=== PATIENT | female | born 1990 | race Caucasian/White ===

== ENCOUNTER 2017-10-19 08:40 | Emergency (ER) | payer OTHER ==
[~2017-10-19] VITALS: Ht 162.6 cm; Wt 91.0 kg
[~2017-10-19 08:40] MED LIST: IBUP600 PO; PRENCAP6 PO
[2017-10-19 08:43] VITALS: BP 139/68; PULSE 68; RESP 16; TEMP 99.7; O2SAT 99
[2017-10-19 08:59] LABS: BILIRUBIN, URINE NEG (NEG); BLOOD, URINE NEG (NEG); GLUCOSE,URINE NEG (NEG); KETONE, URINE NEG (NEG); NITRITE,URINE NEG (NEG); URINE COLOR YELLOW (YELLW/STRAW); URINE LEUKOCYTE ESTERASE TRACE (NEG)
[2017-10-19 09:18] LABS: BACTERIA, URINE FEW /hpf
[2017-10-19] MEDS ORDERED: SODIUM CHLOR 0.9% 1000 ML INJ 1,000 ML IV ONE (09:35)
--- NOTE | 2017-10-19 09:42 | PD ---
HPI Chief Complaint: Abdominal Pain Time Seen by Provider: 09:35 Travel History International Travel<30 days: No Contact w/Intl Traveler<30days: No Traveled to known affect area: No History of Present Illness HPI The patient is a 26-year-old female who presents to the emergency department for lower abdominal pain and syncope. The patient states she awakened a day and had generalized abdominal pain, she had a sudden onset of lower abdominal pain and had a syncopal episode. She notes a superficial abrasion to the lower lip. The patient denied any headache, chest pain, shortness of breath, palpitations, or lightheadedness prior to the abdominal pain and syncope. The patient now complains of lower pelvic pain. She has an IUD in place, is sexually active, denies . She denies any previous abdominal surgeries. She denies any dysuria, frequency, urgency, hematuria, vaginal bleeding, or vaginal discharge. Symptoms are moderate. PFSH Past Medical History Medical History: Denies Significant Hx Diminished Hearing: No Tetanus Vaccination: Unknown Influenza Vaccination: No ?: Not LMP: 09/22/17 : 1 Past Surgical History Surgical History: No Previous Surgery Social History Alcohol Use: No Tobacco Use: No Substance Use: No Allergies-Medications (Allergen,Severity, Reaction): Coded Allergies: No Known Allergies (Unverified Adverse Reaction, Unknown, 10/19/17) Reported Meds & Prescriptions Reported Meds & Active Scripts Active No Active Prescriptions or Reported Medications Review of Systems Except as stated in HPI: all other systems reviewed are Neg General / Constitutional: No: Fever Cardiovascular: Positive: Syncope, No: Chest Pain or Discomfort, Palpitations, Irregular Rhythm, Tachycardia, Diaphoresis Respiratory: No: Shortness of Breath Gastrointestinal: Positive: Abdominal Pain, No: Nausea, Vomiting, Diarrhea Genitourinary: Positive: Pelvic Pain, No: Urgency, Frequency, Dysuria, Hematuria, Discharge, Vaginal Bleeding Musculoskeletal: No: Weakness Neurologic: Positive: Syncope, No: Dizziness Physical Exam Narrative GENERAL: Awake, alert, pleasant 26-year-old female who appears her stated age and is in no acute respiratory distress. SKIN: Focused skin assessment warm/dry. HEAD: Atraumatic. Normocephalic. EYES: Pupils equal and round. No scleral icterus. No injection or drainage. ENT: No nasal bleeding or discharge. Superficial abrasion to the lower lip. No active bleeding. NECK: Trachea midline. No JVD. CARDIOVASCULAR: Regular rate and rhythm. No murmur appreciated. RESPIRATORY: No accessory muscle use. Clear to auscultation. Breath sounds equal bilaterally. GASTROINTESTINAL: Abdomen soft, mild suprapubic tenderness. No guarding or rigidity. Back: No CVA tenderness. Pelvic: The exam was performed in the presence of a female nurse. External examination reveals no rashes or lesions. Speculum examination reveals thick white discharge in the vaginal vault. Cervix is closed. I cannot visualize an IUD. MUSCULOSKELETAL: No obvious deformities. No clubbing. No cyanosis. No edema. NEUROLOGICAL: Awake and alert. No obvious cranial nerve deficits. Motor grossly within normal limits. Normal speech. PSYCHIATRIC: Appropriate mood and affect; insight and judgment normal. Data Data Last Documented VS Vital Signs Date Time Temp Pulse Resp B/P (MAP) Pulse Ox O2 Delivery O2 Flow Rate FiO2 10/19/17 11:35 64 14 129/67 (87) 99 Room Air 10/19/17 08:43 99.7 Orders Orders Urinalysis - C+S If Indicated (10/19/17 08:42) Ed Urine Pregnancytest Poc (10/19/17 08:42) Urine Culture (10/19/17 08:50) Complete Blood Count With Diff (10/19/17 09:35) Comprehensive Metabolic Panel (10/19/17 09:35) Gc And Chlamydia Pcr (10/19/17 09:35) Wet Prep Profile (10/19/17 09:35) Iv Access Insert/Monitor (10/19/17 09:35) Ecg Monitoring (10/19/17 09:35) Sodium Chlor 0.9% 1000 Ml Inj (Ns 1000 M (10/19/17 09:35) Ondansetron Inj (Zofran Inj) (10/19/17 09:45) Ketorolac Inj (Toradol Inj) (10/19/17 09:45) Morphine Inj (Morphine Inj) (10/19/17 09:45) Electrocardiogram (10/19/17 ) Tetanus/Diphtheria Tox Adult (Tetanus/Di (10/19/17 09:45) Us Pelvis Comp W Dop Transvag (10/19/17 09:35) Labs Laboratory Tests Test 10/19/17 08:50 10/19/17 09:44 10/19/17 11:25 Urine Collection Type CLEAN CATCH Urine Color YELLOW Urine Turbidity SL CLOUDY Urine pH 6.0 Urine Specific X[place] 1.025 Urine Protein 30 mg/dL Urine Glucose (UA) NEG mg/dL Urine Ketones NEG mg/dL Urine Occult Blood NEG Urine Nitrite NEG Urine Bilirubin NEG Urine Urobilinogen 0.2 MG/DL Urine Leukocyte Esterase TRACE Urine WBC 9-14 /hpf Urine Squamous Epithelial Cells 6-8 /hpf Urine Bacteria FEW /hpf Microscopic Urinalysis Comment CULTURE INDICATED White Blood Count 6.0 TH/MM3 Red Blood Count 4.27 MIL/MM3 Hemoglobin 12.7 GM/DL Hematocrit 37.3 % Mean Corpuscular Volume 87.3 FL Mean Corpuscular Hemoglobin 29.6 PG Mean Corpuscular Hemoglobin Concent 33.9 % Red Cell Distribution Width 12.3 % Platelet Count 207 TH/MM3 Mean Platelet Volume 7.7 FL Neutrophils (%) (Auto) 74.3 % Lymphocytes (%) (Auto) 17.7 % Monocytes (%) (Auto) 6.2 % Eosinophils (%) (Auto) 0.8 % Basophils (%) (Auto) 1.0 % Neutrophils # (Auto) 4.4 TH/MM3 Lymphocytes # (Auto) 1.1 TH/MM3 Monocytes # (Auto) 0.4 TH/MM3 Eosinophils # (Auto) 0.0 TH/MM3 Basophils # (Auto) 0.1 TH/MM3 CBC Comment DIFF FINAL Differential Comment Blood Urea Nitrogen 12 MG/DL Creatinine 0.78 MG/DL Random Glucose 96 MG/DL Total Protein 7.6 GM/DL Albumin 3.8 GM/DL Calcium Level 8.2 MG/DL Alkaline Phosphatase 55 U/L Aspartate Amino Transf (AST/SGOT) 13 U/L Alanine Aminotransferase (ALT/SGPT) 17 U/L Total Bilirubin 0.6 MG/DL Sodium Level 137 MEQ/L Potassium Level 3.9 MEQ/L Chloride Level 104 MEQ/L Carbon Dioxide Level 27.7 MEQ/L Anion Gap 5 MEQ/L Estimat Glomerular Filtration Rate 89 ML/MIN Clue Cells (Wet Prep) NONE SEEN Vaginal Trichomonas (Wet Prep) NONE SEEN Vaginal Yeast (Wet Prep) NONE SEEN MDM Medical Decision Making Medical Screen Exam Complete: Yes Emergency Medical Condition: Yes Medical Record Reviewed: Yes Interpretation(s) EKG reveals normal sinus rhythm with a rate of 64. No ischemic changes or ectopy noted. No evidence of WPW or Brugada syndrome. OK was 132 ms. No visible delta wave. Last Impressions Abdomen/Pelvis/Transvag US 10/19/17 0935 Signed Impressions: Service Date/Time: October 09:53 - CONCLUSION: 1. IUD in place. 2. Heterogeneous fluid adjacent to the right ovary which otherwise appears unremarkable by ultrasound. This may reflect periovarian blood products potentially from a ruptured hemorrhagic cyst. Differential consideration would include ectopic . Beta-hCG level is recommended. 3. Moderate pelvic free fluid. Sean Olivo MD Differential Diagnosis Differential diagnosis includes syncope, vasovagal syncope secondary to pain, ruptured ectopic , ovarian torsion, ovarian cyst, UTI, pyelonephritis, PID, cervicitis, appendicitis. Narrative Course IV was established, labs are drawn and sent, and the patient was placed on cardiac telemetry monitoring and continuous pulse oximetry monitoring. EKG was ordered and interpreted. UA was sent to lab. Bedside UA test was negative. The patient states she has an IUD in place, with negative test, doubt ectopic . A pelvic exam was completed in the presence of a female nurse, wet prep was sent to lab. Ultrasound of the pelvis with Doppler was performed. Ultrasound reveals IUD in place, does reveal right periovarian fluid products, differential includes ruptured hemorrhagic ovarian cyst versus ectopic . Most likely this is a hemorrhagic ovarian cyst which ruptured, causing acute pain and syncope, her pain is now resolved. Physical exam is now benign. Wet prep was sent to lab. Diagnosis Primary Impression: Ovarian cyst rupture Additional Impressions: UTI (urinary tract infection) Qualified Codes: N30.00 - Acute cystitis without hematuria Pelvic pain in female Syncope Qualified Codes: R55 - Syncope and collapse Patient Instructions: General Instructions Additional Instructions: Medications as directed. Please provide the patient a copy of her ultrasound results and lab results at discharge. Return if symptoms worsen or progress. Follow-up with your primary physician. Med/Other Pt SpecificInfo: Prescription(s) given Scripts Ibuprofen (Ibuprofen) 600 Mg Tab 600 MG PO Q6H Y for Pain/Inflammation, #20 TAB 0 Refills Prov: Scotty Gates MD 10/19/17 Sulfamethoxazole-Trimethoprim (Bactrim DS) 800-160 Mg Tab 1 TAB PO BID for Infection, #6 TAB 0 Refills Prov: Scotty Gates MD 10/19/17 Disposition: 01 DISCHARGE HOME Condition: Stable Scotty Gates MD Oct 19, 2017 09:42
[2017-10-19] MEDS ORDERED: KETOROLAC TROMETHAMINE 30 MG/ML (IVP) VIAL IV PUSH ONE (09:45)
[2017-10-19] MEDS ORDERED: TETANUS/DIPHTHERIA TOXOID ADULT 0.5 ML VIAL IM ONE (09:45)
[2017-10-19] MEDS ORDERED: ONDANSETRON HCL 4 MG/2 ML VIAL IVP ONE (09:45)
[2017-10-19] MEDS ORDERED: MORPHINE SULFATE 2 MG/ML INJ IV PUSH ONE (09:45)
[2017-10-19 09:53] LABS: AUTOMATED NEUTROPHIL # 4.4 TH/MM3 (1.8-7.7); BASOPHIL # 0.1 TH/MM3 (0-0.2); EOSINOPHIL % 0.8 % (0.0-4.0); HEMATOCRIT 37.3 % (35.0-46.0); HEMOGLOBIN 12.7 GM/DL (11.6-15.3); LYMPH % 17.7 % (9.0-44.0); LYMPHOCYTE # 1.1 TH/MM3 (1.0-4.8); MEAN CELL VOLUME 87.3 FL (80.0-100.0); MEAN CORPUSCULAR HEMOGLOBIN 29.6 PG (27.0-34.0); MEAN CORPUSCULAR HGB CONC 33.9 % (32.0-36.0); MEAN PLATELET VOLUME 7.7 FL (7.0-11.0); MONO % 6.2 % (0.0-8.0); MONOCYTE # 0.4 TH/MM3 (0-0.9); NEUT % 74.3 % (16.0-70.0); PLATELET COUNT 207 TH/MM3 (150-450); RED BLOOD COUNT 4.27 MIL/MM3 (4.00-5.30); RED CELL DISTRIBUTION WIDTH 12.3 % (11.6-17.2)
[2017-10-19 10:01] LABS: CHLORIDE 104 MEQ/L (98-107); SODIUM (NA) 137 MEQ/L (136-145)
[2017-10-19 10:04] LABS: CALCIUM 8.2 MG/DL (8.5-10.1)
[2017-10-19 10:05] LABS: ALBUMIN 3.8 GM/DL (3.4-5.0); BICARBONATE 27.7 MEQ/L (21.0-32.0); BLOOD UREA NITROGEN 12 MG/DL (7-18); GLUCOSE,RANDOM 96 MG/DL (74-106)
[2017-10-19 10:08] LABS: ALT (GPT) 17 U/L (10-53); AST (GOT) 13 U/L (15-37); CREATININE 0.78 MG/DL (0.50-1.00); GLOMERULAR FILTRATION RATE 89 ML/MIN (>89)
[2017-10-19 10:09] LABS: TOTAL BILIRUBIN ADULT 0.6 MG/DL (0.2-1.0); TOTAL PROTEIN 7.6 GM/DL (6.4-8.2)
[2017-10-19 10:11] LABS: ALKALINE PHOSPHATASE 55 U/L (45-117)
--- NOTE | 2017-10-19 10:43 | RADRPT ---
EXAM DATE/TIME: 10/19/2017 09:53 [facility] COMPARISON: No previous studies available for comparison. INDICATIONS : Pelvic pain. MEDICAL HISTORY : Pelvic pain. SURGICAL HISTORY : None. ENCOUNTER: Initial ACUITY: 1 day PAIN SCORE: 2/10 LOCATION: Bilateral pelvis MEASUREMENTS: UTERUS: 9.6 x 5.1 x 4.1 cm ENDOMETRIAL STRIPE: 8 mm RIGHT OVARY: 3.2 x 3.0 x 2.0 cm LEFT OVARY: 4.2 x 2.6 x 2.5 cm FINDINGS: UTERUS: There is an intrauterine device in place. The myometrium has homogeneous echotexture without mass. RIGHT OVARY: Ovary contains no mass or significant cystic lesion. However, there is heterogeneous fluid adjacent to the right ovary. LEFT OVARY: 2 cm simple appearing cyst in the mid left ovary. Left ovary is otherwise unremarkable with normal va scularity. MISCELLANEOUS: Moderate free fluid in the cul-de-sac. CONCLUSION: 1. IUD in place. 2. Heterogeneous fluid adjacent to the right ovary which otherwise appears unremarkable by ultrasound . This may reflect periovarian blood products potentially from a ruptured hemorrhagic cyst. Different ial consideration would include ectopic . Beta-hCG level is recommended. 3. Moderate pelvic free fluid. Sean Olivo MD on October 19, 2017 at 10:30 Board Certified Radiologist. This report was verified electronically.
[2017-10-19 11:35] VITALS: BP 129/67; PULSE 64; RESP 14; O2SAT 99
[2017-10-19] MEDS ORDERED: IBUP-232 PO (11:45)
[2017-10-19] MEDS ORDERED: BACT800T5 PO (11:45)
--- NOTE | 2017-10-20 11:07 | EKG ---
Date Performed: 10/19/2017 Time Performed: 10:32:51 PTAGE: 26 years EKG: Sinus rhythm NORMAL ECG NO PREVIOUS TRACING DOCTOR: Baudilio Benson Interpretating Date/Time 10/20/2017 11:06:27
== END 2017-10-19 12:00 | disposition home or self-care (01) ==
LOC: PHED 08:40
DX: N83.201 Unspecified ovarian cyst, right side (principal); N39.0 Urinary tract infection, site not specified; R10.2 Pelvic and perineal pain; R55 Syncope and collapse; Z23 Encounter for immunization
CPT/HCPCS: 76830; 76856; 80053; 81001; 84703; 85025; 87086; 87210; 87491; 87591; 90471; 90714; 93005; 93975; 96361; 96374; 96375; 99285; J1885; J2405; J7030